=== PATIENT | male | born 1990 | race Two or more races ===

== ENCOUNTER 2019-11-08 11:31 | Emergency (ER) | payer SELFPAY ==
[~2019-11-08] VITALS: Ht 165.1 cm; Wt 90.0 kg
[2019-11-08 11:33] VITALS: BP 152/89
[2019-11-08] MEDS ORDERED: LIDOCAINE-MPF 1%, 5ML INFIL ONE (12:00)
[2019-11-08] MEDS ORDERED: LIDOCAINE-MPF 1%, 5ML ONE (12:24)
--- NOTE | 2019-11-08 14:00 | NUR ---
wound irrigated, drained, packed and dressed by edpa. pt given dc instructions and script, educated regarding rx for bactrim and keflex. pt a&o, resps even and unlabored, nadn. pt amb to dc desk with steady gait.
== END 2019-11-08 13:57 | disposition home or self-care (01) ==
LOC: ED 13:45
DX: L02.411 Cutaneous abscess of right axilla (principal); F17.200 Nicotine dependence, unspecified, uncomplicated
CPT/HCPCS: 10060; 99283

== ENCOUNTER 2021-02-26 20:33 | Emergency (ER) | payer SELFPAY ==
[~2021-02-26] VITALS: Ht 165.1 cm; Wt 95.6 kg
--- NOTE | 2021-02-26 20:51 | NUR ---
PT C/O OF PAIN DUE TO ABSCESS AT THE TOP PORTION OF HIS BUTT CRACK. STATES HE HAD SURGERY ON IT A FEW YEARS AGO BUT IT CAME BACK. REPORTS THAT IT COMES AND GOES OVER A FEW MONTHS BUT THE 2 WEEKS ITS BEEN CAUSING HIM EXTREME PAIN.
[2021-02-26] MEDS ORDERED: LIDOCAINE 1%-EPI 1:100K, 20ML SQ ONE (21:30)
[2021-02-26] MEDS ORDERED: LIDOCAINE-MPF 2% ,5ML ONE ×2 (21:54→21:55)
[2021-02-26 22:44] VITALS: BP 103/71
== END 2021-02-26 22:46 | disposition home or self-care (01) ==
LOC: ED 21:35
DX: L72.3 Sebaceous cyst (principal); L05.01 Pilonidal cyst with abscess
CPT/HCPCS: 10080; 99283

== ENCOUNTER 2021-03-01 15:20 | Emergency (ER) | payer SELFPAY ==
[~2021-03-01] VITALS: Ht 165.1 cm; Wt 95.3 kg
--- NOTE | 2021-03-01 15:43 | NUR ---
children's counselor: pt from lobby to room 19
--- NOTE | 2021-03-01 15:52 | NUR ---
PT AT ED FOR CHECK UP ON ABCESS ON COCCYX REGION. PT STATES THE PAIN HAS IMPROVED, ALTHOUGH THE AREA STILL REMAINS UNCOMFORTABLE.
[2021-03-01 17:13] VITALS: BP 130/67
--- NOTE | 2021-03-01 17:19 | NUR ---
PT REC'VD DISCHARGE INSTRUCTIONS AND EDUCATION. PT HAD NO FURTHER QUESTIONS. PT AMBULATED TO DC AREA, STEADY GAIT.
== END 2021-03-01 17:01 | disposition home or self-care (01) ==
LOC: ED 16:55
DX: Z48.01 Encounter for change or removal of surgical wound dressing (principal); F17.210 Nicotine dependence, cigarettes, uncomplicated
CPT/HCPCS: 99406

== ENCOUNTER 2021-03-21 23:14 | Emergency (ER) | payer SELFPAY ==
[~2021-03-21] VITALS: Ht 167.6 cm; Wt 93.4 kg
--- NOTE | 2021-03-22 01:27 | NUR ---
SUPERVISOR ERECTION SHOP: PT. AMBULATORY TO ROOM FROM LOBBY AT THIS TIME. ASSUMING CARE OF PT. CALL LIGHT IN REACH. REQUESTED PT. CHANGE INTO GOWN FOR EVAL.
[2021-03-22] MEDS ORDERED: OXYcodone/APAP 10/325MG TABLET ONE (01:57)
[2021-03-22] MEDS ORDERED: LIDOCAINE-MPF 1%, 5ML ONE (01:57)
[2021-03-22] MEDS ORDERED: OXYcodone/APAP 10/325MG TABLET PO ONE (02:00)
[2021-03-22] MEDS ORDERED: LIDOCAINE 1%, 10ML INFIL ONE (02:00)
[2021-03-22 02:37] VITALS: BP 110/68
== END 2021-03-22 02:39 | disposition home or self-care (01) ==
LOC: ED 23:59
DX: L02.31 Cutaneous abscess of buttock (principal)
CPT/HCPCS: 10060; 99283; 99406

== ENCOUNTER 2021-03-24 09:26 | Emergency (ER) | payer SELFPAY ==
[~2021-03-24] VITALS: Ht 165.1 cm; Wt 94.7 kg
[2021-03-24 09:33] VITALS: BP 130/79
--- NOTE | 2021-03-24 09:51 | NUR ---
RE-PRESENTS FOR GLUTEAL ABSCESS WOUND RECHECK. HAD IT LANCED 2 DAYS AGO HAS BEEN COMPLIANT WITH ABX PAIN IMPROVING, HAS BEEN DRAINING SIGNIFICANTLY ALSO WITH HX OF PILONOIDAL CYSTS
--- NOTE | 2021-03-24 10:03 | NUR ---
PROVIDER TO BEDSIDE, DRESSING/PACKING REMOVED. SIGNIFICANT AMOUNT OF BROWN PUSS EXPELLED
[2021-03-24] MEDS ORDERED: IBUPROFEN 600 MG TABLET ONE (10:28)
[2021-03-24] MEDS ORDERED: IBUPROFEN 600 MG TABLET PO ONE (10:30)
== END 2021-03-24 10:37 | disposition home or self-care (01) ==
LOC: ED 10:31
DX: L05.01 Pilonidal cyst with abscess (principal); Z48.01 Encounter for change or removal of surgical wound dressing
CPT/HCPCS: 99282